=== PATIENT | male | born 1965 | race Caucasian/White ===

== ENCOUNTER 2019-04-19 07:05 | Emergency (ER) | payer OTHER, SELFPAY ==
[2019-04-19 07:06] VITALS: BP 178/94; PULSE 77; RESP 18; TEMP 36.6; O2SAT 95; BMI 33.0
--- NOTE | 2019-04-19 07:11 | RAD_ITS ---
STUDY: X-RAY CHEST REASON FOR EXAM: Male, 53 years old. Chest pain TECHNIQUE: Single AP portable view of the chest. COMPARISON: 03/22/2017 FINDINGS: The lungs are clear and expanded. There is no demonstrated pleural abnormality. Normal size heart. Normal mediastinum and rowena. Normal visualized pulmonary arteries. Normal visualized aortic arch and descending thoracic aorta. Normal visualized thoracic spine. Normal visualized ribs, clavicles, and shoulders. There is no demonstrated abnormality of the visualized soft tissue structures of the upper abdomen. RAD/Chest 1 View (Portable) IMPRESSION: No acute cardiopulmonary disease. No significant interval change. Electronically Signed: Casie Hilliard MD at 7:36 EDT , Service support ,
--- NOTE | 2019-04-19 07:11 | EKG12_ITS ---
Test Reason : CP Blood Pressure : / mmHG Vent. Rate : 065 BPM Atrial Rate : 065 BPM P-R Int : 158 ms QRS Dur : 098 ms QT Int : 400 ms P-R-T Axes : 048 006 037 degrees QTc Int : 416 ms Normal sinus rhythm Inferior infarct , age undetermined Abnormal ECG Confirmed by LUIS CACERES, ERWIN ([id number]), assistant film editor HENRY MAC ([id number]) on 04/20/2019 10:58:54 AM Referred By: WILBERT Confirmed By:ERWIN SMITH MD
[2019-04-19] MEDS: 0.9% Normal Saline 1,000 ML 150 ML IV (07:21)
[2019-04-19 07:23] LABS: Absolute Lymphocyte Count 2.29 X10^3/uL (0.83-4.51); Absolute Neutrophil Count 3.9 X10^3/uL (2.0-7.7); Basophil# 0.03 X10^3/uL; Basophil% 0.4 % (0-1); Eosinophil# 0.18 X10^3/uL; Eosinophils% 2.5 % (0-5); Hematocrit 48.3 % (40-54); Hemoglobin 16.1 g/dL (13.0-16.5); Lymphocyte # 2.29 X10^3/ul (4.0); Lymphocyte % 32.3 % (19-41); Mean Corp Hgb Conc 33.3 g/dL (32-36); Mean Corpuscular Hgb 31.4 pg (27.0-32.0); Mean Corpuscular Volume 94.2 fL (80-94); Mean Platelet Vol. 9.3 fl (6.2-12.0); Monocyte# 0.69 X10^3/uL; Monocyte% 9.7 % (0-10); NRBC Flagged by Analyzer 0 % (0-5); Neutrophil # 3.89 X10^3/uL (2.7-7.7); Neutrophil % 54.8 % (47-70); Platelet Count 290 K/mm3 (150-450); RBC Distribution Width SD 41.5 fl (35.1-43.9); Red Blood Count 5.13 M/mm3 (4.6-6.2); White Blood Count 7.1 K/mm3 (4.4-11.0)
--- NOTE | 2019-04-19 07:38 | ED.VIS.GEN ---
History of Present Illness Chief Complaint: Chest Pain Informant: Patient Onset: Yesterday Current Severity: Mild Narrative: Patient complains of left chest pain left pectoral pain that began yesterday indicates he was in bed he turned to turn off his light, and felt the pain to the left pectoral area, he woke with similar symptoms this morning, he has a history of AR with cardiac stent x1 6 years ago, indicates over the weekend he was quite active at work lifting heavy objects etc. never explains any type of exertional type chest pain indicates his pain is worse if he moves forward turns his arm a certain way bends. He has no history of PE, he had no trauma no abdominal pain no bowel bladder habits constitutional symptoms are negative Past Medical History - Allergies and Home Meds Allergies/Adverse Reactions: Allergies No Known Allergies Allergy (Verified 04/19/19 07:10) Primary Care Physician: Lázaro Lovell MD [Primary Care Provider] - Past Medical History: - - AR with cardiac stent x1 6 years ago cardiovascular status is very stable Surgical History: no surgical history Smoking Status: Former smoker - Family History Paternal Family History: Reports: Heart Disease Review of Systems General: Denies: Chills, Fever, Sweats Eyes: Denies: Visual changes - bilaterally, Diplopia ENT: Denies: Rhinorrhea, Sore throat Cardiovascular: Reports: Chest pain. Denies: Palpitations Respiratory: Denies: Dyspnea, Cough, Dyspnea on exertion Gastrointestinal: Denies: Abdominal pain, Nausea, Vomiting, Diarrhea, Melena, Hematochezia Genitourinary: Denies: Dysuria, Hematuria, Frequency Musculoskeletal: Denies: Back pain, Extremity Pain Skin: Denies: Rash, Wounds Neurological: Denies: Headache, Weakness, Numbness Physical Exam Vital Signs/Narrative: Vital Signs Temp Pulse Resp BP Pulse Ox 04/19/19 07:06 97.8 F 77 18 178/94 H 95 General: Well nourished, Well developed, No Acute Distress Head: Normocephalic, Atraumatic Eyes: Perrl, EOMI ENT: Moist mucous membranes, No rhinorrhea Neck: Supple, Nontender Cardiovascular: Regular rate, Regular rhythm, No murmurs, - - Have pain to palpation over the left pectoral area there is no bruising or contusion here his pain is exacerbated somewhat moving his left arm and he leans forward the lungs are symmetric breath sounds are unremarkable Respiratory: No distress, CTA bilaterally, Chest nontender Abdomen: Soft, Nontender, Nondistended, Normal bowel sounds Back: Nontender, Normal Inspection Extremities: Nontender, No edema Skin: Normal color, No rash Neurological: Alert, Oriented x3, Cranial nerves II-XII grossly intact, Normal Strength, Normal Sensation Psychological: Normal affect, Normal Mood Diagnostic/Tx/Re-eval - Medical Decision Making Ventral rather extensive does not appear to be mechanical component to his symptoms screening labs EKG are done EKG shows a rate of 80 sinus rhythm no acute injury pattern intervals otherwise unremarkable Patient's chest x-ray screening labs troponin are all generally unremarkable see those reports, he is resting company the bed again he has no symptoms except when he leans forward he has a pain over the left pectoral area that indicates a sharp and stabbing when he does not move he has no symptoms further he indicates he is able to exert himself and he never experiences anginal type chest pain He had no trauma his record over the weekend he was busy at work lifting heavy objects but does not recall direct injury his body, we discussed the differential his history of heart disease, we discussed inpatient versus outpatient management he does not wish to be admitted, he wants to go home and follow-up with his outpatient providers, He did agree to stay for repeat troponin EKG were unremarkable he understands exact etiology is unclear he will start on Naprosyn rest and return for change in symptoms he is physicians in the next few days Home stable declined admission Final impression Sharp stabbing left-sided chest pain etiology unclear, history of cardiac stent AR 6 years ago ED Disposition - Plan for ED Patient: Diagnosis: Chest pain Instructions: CHEST PAIN, Uncertain Cause Prescriptions: Naproxen [Naprosyn] 500 mg PO BID PRN #20 tab Prescription Printed Referrals: Lázaro Lovell MD [Primary Care Provider] -
[2019-04-19 07:50] LABS: Anion Gap 6 (5-15); BUN 13 mg/dL (7-18); BUN/Creat Ratio 10.7 RATIO (10-20); Calcium,Total 8.8 mg/dL (8.5-10.1); Chloride 106 mmol/L (98-107); Creatinine, Serum 1.21 mg/dL (0.70-1.30); EST Glomerular Filtration Rate 66 mL/min (>60); Est Glom Filt Rate - Afr Amer 80 mL/min (>60); Estimated Creatinine Clearance 67.52 ml/min; Glucose 160 mg/dL (74-106); Potassium 4.1 mmol/L (3.5-5.1); Sodium Level 140 mmol/L (136-145)
--- NOTE | 2019-04-19 07:55 | EKG12_ITS ---
Test Reason : CP Blood Pressure : / mmHG Vent. Rate : 080 BPM Atrial Rate : 080 BPM P-R Int : 166 ms QRS Dur : 098 ms QT Int : 380 ms P-R-T Axes : 061 018 039 degrees QTc Int : 438 ms Normal sinus rhythm Possible Inferior infarct , age undetermined Abnormal ECG Confirmed by LUIS CACERES, ERWIN ([id number]), map editor HENRY MAC ([id number]) on 04/20/2019 10:59:08 AM Referred By: BENEDICT Confirmed By:ERWIN SMITH MD
[2019-04-19] MEDS: Aspirin 325 MG Tablet PO (08:11)
[2019-04-19 08:27] VITALS: BP 169/91; PULSE 68; RESP 14; O2SAT 97
[2019-04-19 09:07] VITALS: BP 146/86; PULSE 62; RESP 16; O2SAT 96
[2019-04-19] MEDS: Ketorolac 30 MG/ML Syringe IV (09:14)
[2019-04-19 10:48] VITALS: RESP 14
[2019-04-19 10:49] VITALS: BP 163/92; PULSE 56; RESP 15; O2SAT 96
[2019-04-19 11:18] VITALS: BP 163/92; PULSE 61; RESP 16; O2SAT 97
== END 2019-04-19 11:19 | disposition home or self-care (01) ==
PROVIDERS: Emergency Provider Emergency Medicine; Family Provider Family Medicine; PCP Family Medicine
DX: R07.9 Chest pain, unspecified (principal); I25.2 Old myocardial infarction; Z95.5 Presence of coronary angioplasty implant and graft; Z87.891 Personal history of nicotine dependence
CPT/HCPCS: 71045; 80048; 84484; 85025; 93005; 96361; 96374; 99285; J7030; A4216